=== PATIENT | female | born 1995 | race African-American/Black ===

== ENCOUNTER 2018-10-21 15:09 | Outpatient (CLI) | payer OTHER ==
[2018-10-21 16:56] VITALS: BP 117/68
--- NOTE | 2018-10-21 17:54 | Ultrasound Report ---
FINAL REPORT PROCEDURE: US OB LIMITED TECHNIQUE: Real-time limited sonographic examination was performed for evaluation of fluid volume fo r each fetus with image documentation (1 or more fetuses). CPT 81453 HISTORY: Check placenta; do JAY COMPARISON: No prior studies are available for comparison. FINDINGS: FETUS IUP: Single living intrauterine . Position: Cephalic. Placental position: Fundal and grade 2, without previa . Amniotic fluid volume: Amniotic fluid index measures 10.4 centimeters Heart rate and rhythm: 138 BPM, Regular . IMPRESSION: Amniotic fluid index measures 10.4 centimeters. The aerial photographer reports the placenta is fundal in position
--- NOTE | 2018-10-22 07:04 | Event Note ---
Date: 10/21/18 Triage Note for 10/21/2018 23 year old at 39 2/7 weeks gestation to rule out labor. Patient reports irregular contractions intermittently for several days. Patient reports small amount of thick vaginal mucous with brownish tinge. Patient denies leaking of fluid; she denies active vaginal bleeding. Patient reports active movment. Patient is well appearing, alert, oriented, NAD. VSS. Abdomen soft, nontender. Reactive NST; category 1 FHR tracing. SVE 1.5/60/-2. No vaginal bleeding or leaking of fluid seen. JAY 10.4 cm. No signs of placental abruption noted on US. Discussed with patient signs of labor, warning signs of late , daily movement counting. Advised pt. to keep her scheduled follow up appointment at [facility].
== END 2018-10-21 17:53 | disposition home or self-care (01) ==
LOC: TRG 15:09
PROVIDERS: ATTEND Obstetrics & Gynecology
DX: O47.1 False labor at or after 37 completed weeks of gestation (principal); Z3A.39 39 weeks gestation of pregnancy
CPT/HCPCS: 59025; 76815

== ENCOUNTER 2018-10-23 09:10 | Outpatient (CLI) | payer OTHER ==
[2018-10-23 09:37] VITALS: BP 120/80
[2018-10-23] MEDS ORDERED: VISTARIL PO PRN (10:46)
== END 2018-10-23 10:59 | disposition home or self-care (01) ==
LOC: TRG 09:10
PROVIDERS: ATTEND Obstetrics & Gynecology
DX: O47.1 False labor at or after 37 completed weeks of gestation (principal); Z3A.39 39 weeks gestation of pregnancy
CPT/HCPCS: 59025; Q0177

== ENCOUNTER 2018-10-24 10:32 | Inpatient (IN) | payer OTHER ==
[2018-10-24] MEDS ORDERED: LACTATED RINGERS 1,000 ML ONE (14:26)
[2018-10-24] MEDS ORDERED: SUBLIMAZE IV PRN (14:28)
[2018-10-24] MEDS ORDERED: NARCAN 0.4 MG/1 ML IV PRN ×2 (14:28→18:03)
[2018-10-24] MEDS ORDERED: BRETHINE SUB-Q PRN (14:28)
[2018-10-24] MEDS ORDERED: MINERAL OIL PO PRN (14:28)
--- NOTE | 2018-10-24 14:37 | History and Physical Report ---
History of Present Illness Date of examination: 10/24/18 Date of admission: 10/24/18 10:34 Chief complaint: Intense Labor Pains History of present illness: Early entry to care, 2nd Trimester complicated by a UTI, treated with Macrobid, received Rhogam on 08/02/18. Third trimester complicated by some Dizziness, Cardiology consult recommended, but patient declined due to feeling better. Past History Past Medical History: no pertinent history Past Surgical History: no surgical history Family/Genetic History: none Social history: no significant social history, - Obstetrical History Expected Date of Delivery: 10/26/18 Actual Gestation: 39 Week(s) 5 Day(s) : 1 Medications and Allergies Allergies Allergy/AdvReac Type Severity Reaction Status Date / Time No Known Allergies Allergy Unverified 10/21/18 15:20 Home Medications Medication Instructions Recorded Confirmed Last Taken Type No Known Home Medications [No 10/21/18 10/21/18 Unknown History Reported Home Medications] Active Meds: Active Medications Ephedrine Sulfate (Ephedrine Sulfate) 10 mg IV Q2M PRN PRN Reason: Hypotension Fentanyl (Sublimaze) 100 mcg IV Q2H PRN PRN Reason: Labor Pain Lactated Ringer's (Lactated Ringers) 1,000 mls @ 125 mls/hr IV DIRECT JEREL Oxytocin/Sodium Chloride (Pitocin/Ns 20 Unit/1000ml Drip) 20 units in 1,000 mls @ 125 mls/hr IV DIRECT JEREL Oxytocin/Sodium Chloride (Pitocin/Ns 30 Unit/500ml) 30 units in 500 mls @ 2 mls/hr IV TITR JEREL; Protocol Lidocaine (Xylocaine 2%) 20 ml INFILTRATI ONCE ONE Stop: 10/24/18 14:29 Mineral Oil (Mineral Oil) 30 ml PO QHS PRN PRN Reason: Constipation Naloxone HCl (Narcan 0.4 Mg/1 Ml) 0.1 mg IV Q2MIN PRN PRN Reason: Res Rate </= 8 or 02 SAT < 92% Terbutaline Sulfate (Brethine) 0.25 mg SUB-Q ONCE PRN PRN Reason: Hyperstimulation/Hypertonicity Terbutaline Sulfate (Brethine) 0.25 mg IVP ONCE PRN PRN Reason: Hyperstimulation/Hypertonicity Review of Systems All systems: negative - Physical Exam Breasts: Positive: normal Cardiovascular: Regular rate Lungs: Positive: Clear to auscultation, Normal air movement Abdomen: Positive: normal appearance, soft, normal bowel sounds Genitourinary (Female): Positive: normal external genitalia, normal perenium Vagina: Positive: normal moisture Uterus: Positive: enlarged Anus/Rectum: Positive: normal perianal skin - Obstetrical FHR: category 1 Uterine Contraction Monitor Mode: External Cervical Dilatation: 4 Cervical Effacement Percentage: 90 station: -2 Uterine Contraction Pattern: Irregular Uterine Tone Measurement Phase: Resting Uterine Contraction Intensity: Moderate Results All other labs normal. Assessment and Plan A: IUP @ 39 5/7 Weeks Category I Tracing Early Labor GBS Negative P: Admit to L&D per Routine Orders Pitocin Augmentation
[2018-10-24] MEDS ORDERED: STADOL ONE (14:38)
[2018-10-24] MEDS ORDERED: STADOL IV PRN (14:40)
[2018-10-24] MEDS ORDERED: BRETHINE IVP PRN (14:44)
[2018-10-24 14:45] LABS: Hematocrit 37.8 % (30.3-42.9); Hemoglobin 12.4 gm/dl (10.1-14.3); Mean Corpuscular HGB Conc 33 % (30-34); Mean Corpuscular Volume 80 fl (79-97); Platelet Count 210 K/mm3 (140-440); Red Blood Count 4.73 M/mm3 (3.65-5.03); Red Cell Distribution Width 14.3 % (13.2-15.2)
[2018-10-24] MEDS ORDERED: LACTATED RINGERS 1,000 ML IV SCH (15:00)
[2018-10-24] MEDS ORDERED: PITOCin/NS 20 UNIT/1000ML DRIP 20 UNITS/1,000 ML BAG IV SCH (15:00)
[2018-10-24] MEDS ORDERED: PITOCin/NS 30 UNIT/500ML 30 UNITS/500 ML BAG IV SCH (15:00)
[2018-10-24] MEDS ORDERED: XYLOCAINE 2% INFILTRATI ONE (15:28)
--- NOTE | 2018-10-24 17:58 | Progress Note ---
Assessment and Plan A: IUP @ 39 5/7 Weeks Category I Tracing Early Labor GBS Negative P: AROM Continue Pitocin Augmentation Subjective - Subjective Date of service: 10/24/18 Interval history: Early entry to care, 2nd Trimester complicated by a UTI, treated with Macrobid, received Rhogam on 08/02/18. Third trimester complicated by some Dizziness, Cardiology consult recommended, but patient declined due to feeling better. Patient reports: movement normal, contractions (Intense), other (Consents to AROM) Objective - Vital Signs Vital Signs: Vital Signs - 12hr 10/24/18 10/24/18 14:40 15:04 Temperature 97.9 F Pulse Rate 103 H Respiratory 16 Rate Blood Pressure 113/74 - Exam Breasts: normal Cardiovascular: Regular rate Lungs: Clear to auscultation, Normal air movement Abdomen: Present: normal appearance, soft, normal bowel sounds Uterus: Present: normal, firm, fundal height above umbilicus FHR: category 1 Uterine Contraction Monitor Mode: External Cervical Dilatation: 5 (moderate amount of clear fluid upon AROM at 1749) Cervical Effacement Percentage: 90 station: -1 Uterine Contraction Pattern: Irregular Uterine Tone Measurement Phase: Resting Uterine Contraction Intensity: Moderate Extremities: normal - Labs Labs: Abnormal Labs 10/24/18 13:00 WBC 12.9 H MCH 26 L Laboratory Results - last 24 hr 10/24/18 13:00 WBC 12.9 H RBC 4.73 Hgb 12.4 Hct 37.8 MCV 80 MCH 26 L MCHC 33 RDW 14.3 Plt Count 210
[2018-10-24] MEDS ORDERED: NARCAN 2 MG/2 ML IV PRN (18:02)
[2018-10-24] MEDS ORDERED: ZOFRAN IV PRN ×2 (18:03→23:03)
[2018-10-24] MEDS ORDERED: PHENERGAN PO PRN ×2 (18:03→23:03)
[2018-10-24] MEDS ORDERED: PHENERGAN PR PRN (18:03)
[2018-10-24] MEDS ORDERED: SENSORCAINE/DEXTR 0.75-8.25% INFILTRATI ONE (18:12)
[2018-10-24] MEDS ORDERED: fentaNYL-BUPIV 2 MCG/ML-0.125% 200 MCG/100 ML BAG EPIDURAL ONE (18:15)
[2018-10-24] MEDS ORDERED: SODIUM CHLORIDE FLUSH SYRINGE 10 ML IV NR (19:00)
[2018-10-24] MEDS ORDERED: fentaNYL-BUPIV 2 MCG/ML-0.125% 200 MCG/100 ML BAG EPIDURAL SCH ×2 (19:00)
--- NOTE | 2018-10-24 19:34 | Event Note ---
Date: 10/24/18 O: Epidural placed, BP WNL, IUPC and FSE placed, now 6cm/80-1, CAT II tracing. FHR now 170's with minimal variability. Contractions irregular A: Active labor @ 39+ weeks P; Discussed FHR pattern with Dr. Norton, will update in 30 min.
--- NOTE | 2018-10-24 20:38 | Event Note ---
Date: 10/24/18 O: VE 8/80/-1, CAT II tracing, FHR 165-175, contractions now every 3 min. On 2 mu of pitocin. repositioned A:Active labor at 39 + weeks CAT II Tracing P: Dr. Norton updated regarding patient status
[2018-10-24] MEDS ORDERED: TYLENOL PR PRN (21:20)
--- NOTE | 2018-10-24 21:36 | Event Note ---
Date: 10/24/18 O: VE C/C/+1, CAT tracing, turned from side to side, Pit turned off after run of late decelerations after cervical exam A: Active labor Maternal fever P; Expect Tylenol 650mg suppository AK
[2018-10-24] MEDS ORDERED: LANSINOH TP PRN (23:03)
[2018-10-24] MEDS ORDERED: BENADRYL PO PRN (23:03)
[2018-10-24] MEDS ORDERED: TYLENOL PO PRN (23:03)
--- NOTE | 2018-10-24 23:13 | Procedure Note ---
OB Delivery Note - Delivery Date of Delivery: 10/24/18 Surgeon: LUCI MENON Estimated blood loss: 200cc - Vaginal Delivery presentation: vertex Delivery position: OA Intrapartum events: febrile- temp >100.3, decreased FHT variability, mult. late decelerations Delivery augmentation: rupture of membranes, pitocin Delivery monitor: external FHT, external uterine, internal FHT, internal uterine Route of delivery: Delivery placenta: spontaneous Delivery cord: 3 umbilical vessels Episiotomy: none Delivery laceration: 1st degree Delivery repair: vicryl Anesthesia: epidural Delivery comments: of a viable female 6#-2oz @2243 on 10/24/18 over first degree perineal laceration. PLacenta delivered S3VCI. Baby placed on mother's abdomen. Cord clamped and cut. Cord blood obtained. Apgars 8/9. EBL 200cc. Mother and baby doing well.
[2018-10-24] MEDS ORDERED: SODIUM CHLORIDE FLUSH SYRINGE 10 ML IV PRN (23:45)
[2018-10-25] MEDS: IBUPROFEN PO SCH ×4 (01:10→17:40)
[2018-10-25] MEDS ORDERED: DERMOPLAST TP PRN (02:39)
[2018-10-25] MEDS: NORCO 5/325 PO PRN ×2 (07:31→22:37)
--- NOTE | 2018-10-25 11:10 | Progress Note ---
Assessment and Plan A: PPD#1 s/p Stable P: Routine PP orders Undecided on contraception Anticipate discharge home in 24-48 hours Subjective - Subjective Date of service: 10/25/18 Principal diagnosis: PPD#1 s/p Patient reports: appetite normal, voiding normally, pain well controlled, flatus, ambulating normally : doing well, other (breast/bottle) Objective - Vital Signs Latest vital signs: Vital Signs Temp Pulse Resp BP BP Pulse Ox 10/25/18 07:45 98.3 F 84 18 113/64 10/25/18 04:05 97.8 F 91 H 18 103/53 10/25/18 01:10 99.0 F 100 H 20 97/59 10/24/18 23:59 103 H 114/72 10/24/18 23:44 105 H 110/58 10/24/18 23:29 103 H 123/70 10/24/18 23:14 112 H 122/72 10/24/18 22:59 126 H 118/75 10/24/18 22:27 126 H 100 10/24/18 22:22 100.6 F H 125 H 18 117/74 100 10/24/18 22:17 130 H 100 10/24/18 22:14 120 H 117/74 10/24/18 22:12 127 H 100 10/24/18 22:07 121 H 100 10/24/18 22:02 122 H 100 10/24/18 21:59 127 H 120/76 10/24/18 21:57 115 H 100 10/24/18 21:52 121 H 97 10/24/18 21:47 114 H 100 10/24/18 21:45 110 H 136/83 10/24/18 21:42 119 H 100 10/24/18 21:37 130 H 100 10/24/18 21:32 124 H 100 10/24/18 21:27 125 H 100 10/24/18 21:22 125 H 100 10/24/18 21:17 126 H 93 10/24/18 21:15 110 H 131/71 10/24/18 21:12 116 H 100 10/24/18 21:03 98 H 100 10/24/18 21:00 108 H 101/70 10/24/18 20:58 116 H 100 10/24/18 20:53 87 100 10/24/18 20:48 87 100 10/24/18 20:45 97 H 113/64 10/24/18 20:43 112 H 100 10/24/18 20:38 82 100 10/24/18 20:33 104 H 100 10/24/18 20:31 103 H 113/62 10/24/18 20:28 118 H 100 10/24/18 20:23 130 H 100 10/24/18 20:18 107 H 100 10/24/18 20:15 107 H 110/67 10/24/18 20:13 94 H 100 10/24/18 20:08 106 H 100 10/24/18 20:03 126 H 100 10/24/18 19:59 103 H 113/84 10/24/18 19:58 111 H 100 10/24/18 19:53 126 H 100 10/24/18 19:48 124 H 100 10/24/18 19:45 94 H 115/71 10/24/18 19:43 102 H 100 10/24/18 19:38 118 H 100 10/24/18 19:33 117 H 100 10/24/18 19:28 107 H 115/78 10/24/18 19:26 113 H 113/71 10/24/18 19:24 110 H 119/65 10/24/18 19:22 86 112/61 100 10/24/18 19:20 100 H 117/71 10/24/18 19:19 99 H 112/69 10/24/18 19:17 89 100 10/24/18 19:14 90 118/77 10/24/18 19:12 95 H 119/73 100 10/24/18 19:10 82 124/71 10/24/18 19:08 100 H 118/73 10/24/18 19:07 93 H 100 10/24/18 19:06 118 H 119/71 10/24/18 19:04 96 H 119/77 10/24/18 19:02 100 H 121/77 100 10/24/18 19:00 99.6 F 100 H 118/77 10/24/18 18:58 106 H 118/75 10/24/18 18:57 113 H 100 10/24/18 18:56 109 H 108/69 10/24/18 18:54 81 117/74 10/24/18 18:52 113 H 120/74 98 10/24/18 18:50 104 H 115/74 10/24/18 18:48 108 H 116/70 10/24/18 18:47 109 H 116/71 100 10/24/18 18:45 136 H 86/54 10/24/18 18:42 109 H 112/69 100 10/24/18 18:41 121 H 103/63 10/24/18 18:38 116 H 114/71 10/24/18 18:37 89 100 10/24/18 18:36 116 H 118/83 10/24/18 18:34 111 H 121/83 10/24/18 18:32 105 H 116/80 100 10/24/18 18:27 116 H 99 10/24/18 18:24 122 H 118/83 10/24/18 18:22 61 129/93 71 L 10/24/18 15:04 97.9 F 16 10/24/18 14:40 103 H 113/74 Intake and Output 10/24/18 10/25/18 10/25/18 23:59 07:59 15:59 Intake Total 1.333 360 Output Total 400 Balance 1.333 -40 Intake: IV 1.333 PITOCin/NS 30 UNIT/500ML 1.333 30 units In 500 ml @ 2 mls/hr IV TITR JEREL Rx#: [id number] Oral 120 Intake, Free Water 240 Output: Urine 400 Void 400 Other: Total, Intake Amount 120 Total, Output Amount 400 # Voids Void 700 Estimated Blood Loss 200 - Exam Breasts: Present: normal, Cardiovascular: Present: Regular rate, Normal S1, Normal S2, No murmurs Lungs: Present: Clear to auscultation, Normal air movement Abdomen: Present: normal appearance, soft, normal bowel sounds. Absent: distention Vulva: both: laceration/episiotomy (1st degree perineal laceration well approximated) Uterus: Present: firm, fundal height below umbilicus (-1) Extremities: Present: normal Deep Tendon Reflex Grade: Normal +2 - Labs Labs: Abnormal lab results 10/24/18 Range/Units 13:00 WBC 12.9 H (4.5-11.0) K/mm3 MCH 26 L (28-32) pg
--- NOTE | 2018-10-25 11:12 | Discharge Summary ---
Providers - Providers Date of Admission: 10/24/18 10:34 Date of discharge: 10/26/18 Attending physician: JAGRUTI SEO MD Primary care physician: JAGRUTI SEO MD Hospitalization Reason for admission: active labor, IUP at term Delivery: Procedure details: See delivery note Episiotomy: none Laceration: 1st degree (well approximated) complications: none Discharge diagnosis: IUP at term delivered baby: female Condition at discharge: Good Disposition: DC-01 TO HOME OR SELFCARE Plan - Provider Discharge Summary Activity: routine, no sex for 6 weeks, no heavy lifting 4 weeks, no strenuous exercise Diet: routine Instructions: routine Additional instructions: [] Smoking cessation referral if applicable(refer to patient education folder for contact #) [] Refer to [facility]'s [facility] Booklet Call your doctor immediately for: * Fever > 100.5 * Heavy vaginal bleeding ( >1 pad per hour) * Severe persistent headache * Shortness of breath * Reddened, hot, painful area to leg or breast * Drainage or odor from incision. * Keep incision clean and dry at all times and follow doctor's instructions regarding bathing/showering - Follow up plan Follow up: LUCI MENON CNM [Advanced Practice Nurse] - 6 Weeks
[2018-10-25 11:37] LABS: Hematocrit 32.3 % (30.3-42.9); Hemoglobin 10.7 gm/dl (10.1-14.3)
[2018-10-25] MEDS ORDERED: M-M-R II VACCINE SUB-Q ONE (23:03)
[2018-10-26] MEDS ORDERED: BOOSTRIX IM ONE (06:00)
[2018-10-26] MEDS: IBUPROFEN PO SCH (08:17)
[2018-10-26 12:59] VITALS: BP 117/65
== END 2018-10-26 13:40 | disposition home or self-care (01) | DRG 806 ==
LOC: TRG 10:32 → LD 10:34 → TRG 11:26 → OB 10-25 00:33
PROVIDERS: ADMIT Obstetrics & Gynecology; ATTEND Obstetrics & Gynecology
PROC: 10E0XZZ Delivery of Products of Conception, External Approach (ICD-10-PCS; principal; 2018-10-24)
PROC: 0HQ9XZZ Repair Perineum Skin, External Approach (ICD-10-PCS; 2018-10-24)
PROC: 10907ZC Drainage of Amniotic Fluid, Therapeutic from Products of Conception, Via Natural or Artificial Opening (ICD-10-PCS; 2018-10-24)
PROC: 3E0R3BZ Introduction of Anesthetic Agent into Spinal Canal, Percutaneous Approach (ICD-10-PCS; 2018-10-24)
PROC: 00HU33Z Insertion of Infusion Device into Spinal Canal, Percutaneous Approach (ICD-10-PCS; 2018-10-24)
PROC: 3E0134Z Introduction of Serum, Toxoid and Vaccine into Subcutaneous Tissue, Percutaneous Approach (ICD-10-PCS; 2018-10-25)
PROC: 3E0234Z Introduction of Serum, Toxoid and Vaccine into Muscle, Percutaneous Approach (ICD-10-PCS; 2018-10-26)
DX: O76 Abnormality in fetal heart rate and rhythm complicating labor and delivery (principal); O75.2 Pyrexia during labor, not elsewhere classified; Z37.0 Single live birth; O70.0 First degree perineal laceration during delivery; Z3A.39 39 weeks gestation of pregnancy
CPT/HCPCS: 36415; 85014; 85018; 85027; 86592; 86850; 86900; 86901; 88307; G0378; A6250; J0595; J2590; J3010; J7120